=== PATIENT | female | born 1975 | race Caucasian/White ===

== ENCOUNTER → 2023-12-17 07:28 | Outpatient (REF) | payer OTHER, SELFPAY | LOC: HWWDC 07:28 | PROVIDERS: ATTENDING PHYSICIAN Nurse Practitioner Adult Health | DX: Z12.31 Encounter for screening mammogram for malignant neoplasm of breast (principal) | CPT/HCPCS: 77063; 77067 ==

== ENCOUNTER 2025-03-11 05:52 | Day surgery (SDC) | payer OTHER, SELFPAY ==
[2025-03-11] VITALS (10 sets, daily range): BP systolic 94–119; BP diastolic 58–79; BMI 38.6
[2025-03-11] MEDS: NORMOSOL-R/PLASMALYTE-A 1000 IV (06:35)
[2025-03-11] MEDS: SUBLIMAZE 25 MCG IV ×2 (08:31→08:48)
[2025-03-11] MEDS: ROXICODONE 5 MG PO (09:25)
[2025-03-11] MEDS: TYLENOL 650 MG PO (09:26)
== END 2025-03-11 10:00 | disposition home or self-care (01) ==
LOC: SDS 05:52
PROVIDERS: ATTENDING PHYSICIAN Surgery
DX: D17.1 Benign lipomatous neoplasm of skin and subcutaneous tissue of trunk (principal); R22.2 Localized swelling, mass and lump, trunk; J45.909 Unspecified asthma, uncomplicated; F10.10 Alcohol abuse, uncomplicated; Z72.0 Tobacco use; Z86.718 Personal history of other venous thrombosis and embolism; Z79.01 Long term (current) use of anticoagulants; Z98.890 Other specified postprocedural states
CPT/HCPCS: 21552; 88304

== ENCOUNTER → 2025-06-08 07:31 | Outpatient (REF) | payer OTHER, SELFPAY | LOC: HWWDC 07:31 | PROVIDERS: ATTENDING PHYSICIAN Nurse Practitioner Adult Health | DX: Z12.31 Encounter for screening mammogram for malignant neoplasm of breast (principal) | CPT/HCPCS: 77063; 77067 ==